=== PATIENT | male | born 1940 | race Caucasian/White ===

== ENCOUNTER 2021-08-06 12:00 | Outpatient (REF) | payer MEDICARE, OTHER, SELFPAY ==
[2021-08-06 13:26] LABS: Anion Gap 10 (12-20); Blood Urea Nitrogen 12 mg/dL (9-16); Calcium 9.8 mg/dL (8.4-10.2); Carbon Dioxide 39 mmol/L (22-29); Chloride 94 mmol/L (96-108); Estimated Glomerular Filt Rate > 60; Glucose Random 84 mg/dL (60-115); Potassium 4.9 mmol/L (3.3-5.1); Sodium 138 mmol/L (135-145)
[2021-08-06 13:52] LABS: Erythrocyte Sedimentation Rate 12 MM/HR (0-15)
[2021-08-07 07:28] LABS: Syphilis Screen Nonreactive (Nonreactive)
[2021-08-08 04:47] LABS: Lyme Abs Screen <0.90 index
[2021-08-12 00:21] LABS: Acetylcholine Recept. Blocking <15 (<15)
[2021-08-12 18:47] LABS: Acetylcholine Receptor Binding <0.30 nmol/L
[2021-08-15 16:36] LABS: Acetylcholine Recep Modulating 15
== END 2021-08-06 12:01 | disposition home or self-care (01) ==
LOC: HO.LAB 12:00
PROVIDERS: PCP Physician Assistant Medical; Visit Provider Psychiatry & Neurology Neurology
DX: I67.89 Other cerebrovascular disease (principal); R47.02 Dysphasia
CPT/HCPCS: 36415; 80048; 83519; 85652; 86617; 86618; 86780; 87102; 87107

== ENCOUNTER 2023-12-12 06:23 | Outpatient (REF) | payer SELFPAY ==
[2023-12-12 06:03] LABS: MANUAL DIFF FLAG NO
[2023-12-12 07:07] LABS: Eosinophils Percent Auto 0.2 % (0-4); Hematocrit 36.9 % (42.0-52.0); Hemoglobin 12.8 g/dl (14.0-18.0); Imm Gran Abs Auto 0.02 X10*3/uL (0.00-0.03); Imm Gran Pct Auto 0.2 % (0.0-0.4); Lymphocytes Absolute Auto 0.9 X10*3/uL (1.2-4.9); Lymphocytes Percent Auto 10.4 % (20-40); Mean Corpuscular HGB Conc 34.7 g/dl (31.0-36.0); Mean Corpuscular Volume 98.1 fL (80.0-98.0); Mean Platelet Volume 10.9 fL (9.4-12.4); Monocytes Absolute Auto 0.6 X10*3/uL (0.1-1.2); Monocytes Percent Auto 7.2 % (2-11); Neutrophils Absolute Auto 7.2 x10*3/uL (2.0-8.3); Platelet Count 205 X10*3/uL (160-400); Red Blood Count 3.76 X10*6/uL (4.60-5.80); White Blood Count 8.8 X10*3/uL (4.8-10.8)
[2023-12-12 07:30] LABS: Blood Urea Nitrogen 25 mg/dL (9-16); Calcium 9.1 mg/dL (8.4-10.2); Carbon Dioxide 31 mmol/L (22-29); Chloride 103 mmol/L (96-108); Estimated Glomerular Filt Rate > 60; Glucose Random 149 mg/dL (60-115); Potassium 4.1 mmol/L (3.3-5.1); Sodium 142 mmol/L (135-145)
[2023-12-12 07:35] LABS: Anion Gap 12 (12-20)
== END 2023-12-12 06:24 | disposition home or self-care (01) ==
LOC: HO.MMNH1L 06:23
PROVIDERS: Visit Provider Hospitalist
DX: J96.01 Acute respiratory failure with hypoxia (principal)
CPT/HCPCS: 36415; 80048; 85025